=== PATIENT | male | born 1955 | race Caucasian/White ===

== ENCOUNTER 2017-04-04 14:07 | Emergency (ER) | payer OTHER ==
[~2017-04-04] VITALS: Ht 170.2 cm; Wt 67.7 kg
[2017-04-04 14:43] LABS: EOSINOPHIL COUNT 0.1 K/uL (0-0.3); HEMATOCRIT 40.2 % (38.0-50.0); IMMATURE GRANULOCYTE (%) 0.3 % (0.0-0.7); INSTRUMENT ABS NEUTROPHIL CT 5.7 K/uL; LYMPHOCYTE COUNT 2.5 K/uL (1.0-2.8); MCHC 33.1 G/DL (30.0-36.0); MCV 90.7 FL (86-99); MEAN PLAT.VOLUME 10.4 uM^3 (9.0-12.4); MONOCYTE (%) 7.6 % (3-12); MONOCYTE COUNT 0.7 K/uL (0-0.8); NEUTROPHIL COUNT 5.7 K/uL (1.8-6.4); PLATELET COUNT 264 K/uL (156-360); RBC DIS.WIDTH-CV 12.9 % (11.8-14.6); RBC DIS.WIDTH-SD 42.6 % (39-53); RED BLOOD COUNT 4.43 M/uL (4.00-5.50)
[2017-04-04 14:54] LABS: CHLORIDE 107 mEq/L (99-109); POTASSIUM 3.5 mEq/L (3.7-5.4); SODIUM 140 mEq/L (136-147)
[2017-04-04 14:55] LABS: INTER. NORMALIZED RATIO 1.1; PROTHROMBIN TIME 10.8 (9.2-11.2); PTT 28.2 (25-32)
[2017-04-04 14:56] LABS: GLUCOSE 99 mg/dL (70-99)
[2017-04-04 14:57] LABS: ANION GAP 10 MEQ/L (2-14)
[2017-04-04 14:59] LABS: SERUM ETHYL ALCOHOL < 10 mg/dL
[2017-04-04 15:00] LABS: GFR ESTIMATE (CALCULATED) 51 mL/min/; UREA NITROGEN (BUN) 22 mg/dL (9-23)
[2017-04-04 15:04] LABS: TROP-I INTERPRETATION NEGATIVE; TROPONIN-I 0.02 ng/mL (0.0-0.30)
[2017-04-04 16:01] VITALS: BP 118/69
== END 2017-04-04 16:02 | disposition home or self-care (01) ==
LOC: EME 14:07
PROVIDERS: Emergency Medicine
DX: F41.9 Anxiety disorder, unspecified (principal); F32.9 Major depressive disorder, single episode, unspecified; R07.89 Other chest pain; Z91.5 Personal history of self-harm; I10 Essential (primary) hypertension; B19.20 Unspecified viral hepatitis C without hepatic coma; Z95.5 Presence of coronary angioplasty implant and graft; F17.200 Nicotine dependence, unspecified, uncomplicated
CPT/HCPCS: 71010; 80048; 84484; 85025; 85610; 85730; 90839; 93005; 99281; 99283; G0480

== ENCOUNTER 2017-06-07 09:35 | Emergency (ER) | payer OTHER ==
[~2017-06-07] VITALS: Ht 170.2 cm; Wt 67.3 kg
[2017-06-07 13:35] VITALS: BP 170/90
== END 2017-06-07 13:36 | disposition home or self-care (01) ==
LOC: EME 09:35
DX: F32.9 Major depressive disorder, single episode, unspecified (principal); F41.9 Anxiety disorder, unspecified; F10.21 Alcohol dependence, in remission; I10 Essential (primary) hypertension; F17.200 Nicotine dependence, unspecified, uncomplicated
CPT/HCPCS: 90839; 93005; 99281; 99285

== ENCOUNTER 2017-07-23 17:44 | Emergency (ER) | payer OTHER ==
[~2017-07-23] VITALS: Ht 170.2 cm; Wt 69.4 kg
[2017-07-23 20:36] LABS: BASOPHIL COUNT 0.1 K/uL (0-0.1); EOSINOPHIL COUNT 0.1 K/uL (0-0.3); HEMATOCRIT 44.5 % (38.0-50.0); IMMATURE GRANULOCYTE (%) 0.3 % (0.0-0.7); INSTRUMENT ABS NEUTROPHIL CT 6.4 K/uL; LYMPHOCYTE COUNT 3.1 K/uL (1.0-2.8); MCHC 33.7 G/DL (30.0-36.0); MEAN PLAT.VOLUME 11.9 uM^3 (9.0-12.4); MONOCYTE (%) 8.6 % (3-12); MONOCYTE COUNT 0.9 K/uL (0-0.8); NEUTROPHIL (%) 60.6 % (45-76); NEUTROPHIL COUNT 6.4 K/uL (1.8-6.4); PLATELET COUNT 218 K/uL (156-360); RBC DIS.WIDTH-CV 13.2 % (11.8-14.6); RBC DIS.WIDTH-SD 43.2 % (39-53); WHITE BLOOD COUNT 10.5 K/uL (4.1-10.2)
[2017-07-23 20:45] LABS: CHLORIDE 112 mEq/L (99-109); POTASSIUM 4.3 mEq/L (3.7-5.4); SODIUM 144 mEq/L (136-147)
[2017-07-23 20:47] LABS: GLUCOSE 108 mg/dL (70-99)
[2017-07-23 20:48] LABS: ANION GAP 12 MEQ/L (2-14)
[2017-07-23 20:50] LABS: AMPHETAMINE NEGATIVE (500 ng/mL); BARBITURATES NEGATIVE (200 ng/mL); BENZODIAZEPINES NEGATIVE (150 ng/mL); COCAINE NEGATIVE (150 ng/mL); INTERNAL CONTROLS VALID? YES; METHADONE NEGATIVE (200 ng/mL); METHAMPHETAMINE NEGATIVE (500 ng/mL); OPIATES (MORPHINE) NEGATIVE (100 ng/mL); OXYCODONE NEGATIVE (100 ng/mL); PHENCYCLIDINE NEGATIVE (25 ng/mL); PROPOXYPHENE NEGATIVE (300 ng/mL); THC CANNABINOIDS NEGATIVE (50 ng/mL); TRICYCLIC ANTIDEPRESSANTS NEGATIVE (300 ng/mL)
[2017-07-23 20:51] LABS: GFR ESTIMATE (CALCULATED) 44 mL/min/
[2017-07-23 20:52] LABS: UREA NITROGEN (BUN) 27 mg/dL (9-23)
[2017-07-23 22:29] VITALS: BP 150/85
== END 2017-07-23 22:29 | disposition home or self-care (01) ==
LOC: EME 17:44
PROVIDERS: Emergency Medicine
DX: F32.9 Major depressive disorder, single episode, unspecified (principal); I10 Essential (primary) hypertension; I25.2 Old myocardial infarction; Z95.5 Presence of coronary angioplasty implant and graft; B19.20 Unspecified viral hepatitis C without hepatic coma; F41.9 Anxiety disorder, unspecified; F10.10 Alcohol abuse, uncomplicated; F17.200 Nicotine dependence, unspecified, uncomplicated
CPT/HCPCS: 80048; 85025; 90839; 99281; 99285

== ENCOUNTER 2017-08-13 09:02 | Emergency (ER) | payer OTHER ==
[~2017-08-13] VITALS: Ht 170.2 cm; Wt 67.8 kg
[2017-08-13] MEDS ORDERED: ZITHROMAX Z-PA250 MG PO (09:41)
[2017-08-13 10:19] VITALS: BP 154/95
== END 2017-08-13 10:20 | disposition home or self-care (01) ==
LOC: EME 09:02
DX: J40 Bronchitis, not specified as acute or chronic (principal); I10 Essential (primary) hypertension; I25.2 Old myocardial infarction; Z98.61 Coronary angioplasty status; F17.200 Nicotine dependence, unspecified, uncomplicated
CPT/HCPCS: 99281; 99282

== ENCOUNTER 2017-08-15 09:55 | Emergency (ER) | payer OTHER ==
[~2017-08-15] VITALS: Ht 170.2 cm; Wt 65.4 kg
[~2017-08-15 09:55] MED LIST: ZITHROMAX Z-PA250 MG PO
[2017-08-15 11:38] LABS: ADD MIUA? YES; BILIRUBIN NEGATIVE; BLOOD NEGATIVE; COLOR YELLOW ((YELLOW)); GLUCOSE (STRIP) NEGATIVE; KETONES NEGATIVE; LEUKOCYTES NEGATIVE; NITRITE NEGATIVE; PROTEIN (STRIP) >=500; UROBILINOGEN 0.2 MG/DL (0.2-1.0)
[2017-08-15 11:42] LABS: BACTERIA NONE SEEN /HPF; EPITHELIAL CELLS NONE SEEN /HPF; MUCUS TRACE /LPF; RED BLOOD CELLS 0-5 /HPF (0-5); UCUL ADDED? NO; WHITE BLOOD CELLS 0-5 /HPF (0-5)
[2017-08-15 11:47] LABS: AMPHETAMINE NEGATIVE (500 ng/mL); BARBITURATES NEGATIVE (200 ng/mL); BENZODIAZEPINES NEGATIVE (150 ng/mL); COCAINE NEGATIVE (150 ng/mL); INTERNAL CONTROLS VALID? YES; METHADONE NEGATIVE (200 ng/mL); METHAMPHETAMINE NEGATIVE (500 ng/mL); OPIATES (MORPHINE) NEGATIVE (100 ng/mL); OXYCODONE NEGATIVE (100 ng/mL); PHENCYCLIDINE NEGATIVE (25 ng/mL); PROPOXYPHENE NEGATIVE (300 ng/mL); THC CANNABINOIDS NEGATIVE (50 ng/mL); TRICYCLIC ANTIDEPRESSANTS NEGATIVE (300 ng/mL)
[2017-08-15 12:24] LABS: HEMATOCRIT 46.9 % (38.0-50.0); MCH 29.2 PG (29.0-34.0); MCHC 33.7 G/DL (30.0-36.0); MCV 86.7 FL (86-99); MEAN PLAT.VOLUME 10.6 uM^3 (9.0-12.4); PLATELET COUNT 248 K/uL (156-360); RBC DIS.WIDTH-CV 13.1 % (11.8-14.6); RBC DIS.WIDTH-SD 41.4 % (39-53); RED BLOOD COUNT 5.41 M/uL (4.00-5.50); WHITE BLOOD COUNT 10.4 K/uL (4.1-10.2)
[2017-08-15 12:36] LABS: CHLORIDE 109 mEq/L (99-109); POTASSIUM 3.9 mEq/L (3.7-5.4); SODIUM 141 mEq/L (136-147)
[2017-08-15 12:38] LABS: GLUCOSE 82 mg/dL (70-99)
[2017-08-15 12:39] LABS: ANION GAP 10 MEQ/L (2-14)
[2017-08-15 12:40] LABS: TOTAL BILIRUBIN 0.5 mg/dL (0.0-1.0)
[2017-08-15 12:41] LABS: SERUM ETHYL ALCOHOL < 10 mg/dL
[2017-08-15 12:42] LABS: ALKALINE PHOSPHATASE 82 IU/L (3-129); GFR ESTIMATE (CALCULATED) > 59 mL/min/
[2017-08-15 12:43] LABS: UREA NITROGEN (BUN) 17 mg/dL (9-23)
[2017-08-15] MEDS ORDERED: LEVAQUIN750 MG PO (13:47)
[2017-08-15 14:07] VITALS: BP 208/113
== END 2017-08-15 14:08 | disposition home or self-care (01) ==
LOC: EME 09:55
PROVIDERS: Emergency Medicine
DX: F32.9 Major depressive disorder, single episode, unspecified (principal); J18.9 Pneumonia, unspecified organism; F10.21 Alcohol dependence, in remission; F17.200 Nicotine dependence, unspecified, uncomplicated; I10 Essential (primary) hypertension; I25.2 Old myocardial infarction; Z95.5 Presence of coronary angioplasty implant and graft
CPT/HCPCS: 71010; 80053; 81003; 85027; 90839; 99281; 99284; G0480

== ENCOUNTER 2017-12-07 22:57 | Emergency (ER) | payer OTHER ==
[~2017-12-07] VITALS: Ht 170.2 cm; Wt 70.0 kg
[~2017-12-07 22:57] MED LIST changes: +LEVAQUIN750 MG PO
[2017-12-07] MEDS ORDERED: SERTRALINE HCL100 MG PO (23:09)
[2017-12-07] MEDS ORDERED: ATORVASTATIN CA40 MG PO (23:10)
[2017-12-07] MEDS ORDERED: LOSARTAN POTASS25 MG PO (23:10)
[2017-12-07] MEDS ORDERED: REMERON15 M2 PO (23:10)
[2017-12-07 23:21] LABS: HEMATOCRIT 45.4 % (38.0-50.0); HEMOGLOBIN 15.4 G/DL (12.5-16.6); MCHC 33.9 G/DL (30.0-36.0); MCV 88.5 FL (86-99); PLATELET COUNT 225 K/uL (156-360); RBC DIS.WIDTH-CV 13.7 % (11.8-14.6); RBC DIS.WIDTH-SD 44.4 % (39-53); RED BLOOD COUNT 5.13 M/uL (4.00-5.50)
[2017-12-07 23:39] LABS: CHLORIDE 105 mEq/L (99-109); POTASSIUM 3.9 mEq/L (3.7-5.4); SODIUM 140 mEq/L (136-147)
[2017-12-07 23:40] LABS: GLUCOSE 117 mg/dL (70-99)
[2017-12-07 23:44] LABS: CREATININE 1.4 mg/dL (0.6-1.3); GFR ESTIMATE (CALCULATED) 55 mL/min/ (58.99-99999)
[2017-12-07 23:45] LABS: UREA NITROGEN (BUN) 24 mg/dL (9-23)
[2017-12-08 01:05] VITALS: BP 146/71
== END 2017-12-08 01:06 | disposition home or self-care (01) ==
LOC: EME 22:57
PROVIDERS: Physician Assistant
DX: J10.1 Influenza due to other identified influenza virus with other respiratory manifestations (principal); I10 Essential (primary) hypertension; I25.2 Old myocardial infarction; B19.20 Unspecified viral hepatitis C without hepatic coma; F41.9 Anxiety disorder, unspecified; F17.200 Nicotine dependence, unspecified, uncomplicated; Z95.5 Presence of coronary angioplasty implant and graft
CPT/HCPCS: 71046; 80048; 85027; 87502; 87651 90; 99281; 99283